=== PATIENT | female | born 1965 | race African-American/Black ===

== ENCOUNTER 2022-05-04 23:13 | Emergency (ER) | payer MEDICAID ==
[~2022-05-04] VITALS: Ht 160 cm; Wt 96.4 kg
[~2022-05-04 23:13] MED LIST: A20IH1 IH; BECL8.7A5 IH; FURO20 PO; LURA40TA2 PO; RISP2TAB45 PO; TRAZ-257 PO
[2022-05-05] MEDS ORDERED: CYCL-448 PO (00:42)
[2022-05-05] MEDS ORDERED: IBUP-2070 PO (00:42)
[2022-05-05] MEDS ORDERED: LIDOCAINE 5% TRANSDERMAL PATCH TD ONE (00:45)
[2022-05-05] MEDS ORDERED: KETOROLAC TROMETHAMINE 30 MG/ML VIAL IM ONE (00:45)
[2022-05-05 00:48] VITALS: BP 127/77
== END 2022-05-05 01:25 | disposition home or self-care (01) ==
LOC: EMS 23:13
DX: M62.830 Muscle spasm of back (principal); F20.9 Schizophrenia, unspecified; F41.9 Anxiety disorder, unspecified; F10.20 Alcohol dependence, uncomplicated; F17.210 Nicotine dependence, cigarettes, uncomplicated; J45.909 Unspecified asthma, uncomplicated
CPT/HCPCS: 99283; 96372; J1885